=== PATIENT | male | born 1985 | race Caucasian/White ===

== ENCOUNTER 2016-12-13 19:05 | Emergency (ER) | payer SELFPAY ==
--- NOTE | ~2016-12-13 | ER ---
PATIENT'S NAME: RIKKI SANFORD [facility] AGE: 30 Y [address] ROOM: [place] [address] LOCATION: [facility] ADMIT DATE: 12/13/2016 ER/Outpatient Report DISCHARGE DATE: 12/13/2016 FAMILY PHYSICIAN: PHYSICIAN, NO ATTENDING PHYSICIAN: Raul Salas Time of Patient's Arrival: 1905 hours. Time of Patient's Evaluation: 1920 hours. CHIEF COMPLAINT: Schizophrenia. HISTORY OF PRESENT ILLNESS: This is a 30-year-old male who presents to the ER, who states he is needing his medications for his schizophrenia. He states he has not taken it for over a week. He states he does not feel suicidal, he does not feel homicidal. He states that he does have history of high thyroid problems as well, but he has not taken those medications for several months. He does not have a primary care physician. He did present over to [facility] and they told him to come to the emergency room. The patient denies any recent illnesses. No fever or chills. Mother states that she feels a little bit hopeless with him when he stops taking his medications. The patient denies other problems at this time. ALLERGIES: NO KNOWN ALLERGIES. MEDICATIONS: Please see medication list in nurse's notes. PAST MEDICAL HISTORY: Schizophrenia and hypothyroidism. PAST SURGERIES: None. SOCIAL HISTORY: He smokes 1 pack a day for the last 14 years, he does smoke marijuana. REVIEW OF SYSTEMS: All systems were reviewed and were negative with the exception of those discussed in the HPI. PHYSICAL EXAMINATION: VITAL SIGNS: Height 6 feet stated, weight 83.6 kg taken, blood pressure is PATIENT'S NAME: RIKKI SANFORD [facility] AGE: 30 Y [address] ROOM: [place] [address] LOCATION: ED ADMIT DATE: 12/13/2016 ER/Outpatient Report DISCHARGE DATE: 12/13/2016 FAMILY PHYSICIAN: PHYSICIAN, NO ATTENDING PHYSICIAN: Raul Salas 139/77, pulse 102, respirations 18, temperature 99.5 degrees tympanically, and saturations 94% on room air. Yarelis Coma Score is 15. GENERAL: Alert, very anxious-appearing 30-year-old in mild distress. He looks very unkempt and seems a slight bit agitated. HEENT: Head: Normocephalic. Eyes: Pupils are equal and reactive to light. LUNGS: Clear to auscultation bilaterally. No wheezes or crackles. HEART: Regular rate and rhythm. EXTREMITIES: No clubbing or cyanosis. He has full range of motion of all limbs. SKIN: Warm, dry, and intact. LABORATORY DATA: CBC: White count is 9.8, hemoglobin is 14.4, platelets are 285, and ANC is 6.3. CMS: Sodium is 143, potassium is 3.2, anion gap is 9.2, alcohol level is less than 0.010, acetaminophen is less than 2.0, salicylate is 4.4, TSH is 15.40. Urinalysis: Negative for any infection. Urine drug screen was positive for marijuana. IMPRESSION: 1. Schizophrenia. 2. Hypothyroidism. ASSESSMENT AND PLAN: We did have [facility] come over and evaluate the patient. They state that he needs to start back up on his medications and to be seen in about a week's time. I did provide him with prescriptions for Risperdal and levothyroxine to use as directed. We did give him a dose of that here in the emergency room prior to his dismissal. They need to monitor symptoms and follow up with the recommendations of [facility]. The patient and the patient's mother understand and agree with care. DENY ACEVEDO PA-C FOR MD DINA CERNA/trish /[id number] d: t: 12/24/16 1326, OUTPATIENT REPORT
[2016-12-13 19:28] LABS: BILIRUBIN URINE NEGATIVE (NEGATIVE); BLOOD URINE NEGATIVE /UL (NEGATIVE); COLOR URINE YELLOW (YELLOW); GLUCOSE URINE NEGATIVE (NEGATIVE); KETONE URINE 5 mg/dL (NEGATIVE); LEUKOCYTES URINE 25 /UL (NEGATIVE); NITRITE URINE NEGATIVE (NEGATIVE); PH URINE 6.5 (4.0-8.0); PROTEIN URINE 15 mg/dL (NEGATIVE); TURBIDITY URINE CLEAR (CLEAR); UROBILINOGEN URINE 4 mg/dL (NORMAL)
[2016-12-13 19:35] LABS: RBC URINE NEGATIVE #/HPF (NEGATIVE)
[2016-12-13 19:36] LABS: EPITHELIAL URINE 0-2 #/HPF (NEGATIVE)
[2016-12-13 19:37] LABS: BACTERIA URINE NEGATIVE (NEGATIVE); MUCUS URINE 2+ (NEGATIVE)
[2016-12-13 19:38] LABS: BASOPHIL # 0.1 K/uL (0.0-0.2); BASOPHIL % 0.6 %; EOSINOPHIL # 0.1 K/uL (0.0-0.5); EOSINOPHIL % 1.1 %; HEMATOCRIT 40.5 % (37.0-53.0); HEMOGLOBIN 14.4 g/dL (12.0-17.0); IMMATURE GRANULOCYTE % 0.2 %; LYMPHOCYTE # 2.1 K/uL (0.8-4.0); MCH 30.5 pg (27.0-34.0); MCHC 35.6 gm/dL (32.0-36.5); MCV 85.8 fl (83.0-98.0); MONOCYTE # 1.3 K/uL (0.0-1.0); MONOCYTE % 12.8 %; MPV 9.8 fl (9.4-12.4); NEUTROPHIL # (ANC) 6.3 K/uL (1.4-9.0); NEUTROPHIL % 64.3 %; NRBC % 0 /100WBC (0-0.00); PLATELET COUNT 285 K/uL (150-450); RBC 4.72 M/uL (4.00-6.00); RDW-CV 12.8 % (11.9-14.6); WBC 9.8 K/uL (4.0-11.0)
[2016-12-13 19:46] LABS: AMPHETAMINE NEGATIVE (NEGATIVE); COCAINE NEGATIVE (NEGATIVE); OPIATES NEGATIVE (NEGATIVE)
[2016-12-13 19:47] LABS: BARBITURATE NEGATIVE (NEGATIVE)
[2016-12-13 20:00] LABS: ALBUMIN 3.5 gm/dL (3.5-5.0); ALK PHOS 129 IU/L (33-138); ALT 39 IU/L (12-78); ANION GAP 9.2 (10.0-19.0); AST 35 IU/L (10-40); BLOOD UREA NITROGEN 9 mg/dL (6-24); CALCIUM 8.3 mg/dL (8.5-10.5); CHLORIDE 112 mMol/L (96-110); CO2 25 mMol/L (22-32); POTASSIUM 3.2 mMol/L (3.7-5.1); SODIUM 143 mMol/L (135-145); TOTAL BILIRUBIN 0.6 mg/dL (0.0-1.5); TOTAL PROTEIN 6.8 g/dL (6.0-8.4)
[2016-12-23] MEDS ORDERED: RISPERDAL2 MG PO (17:12)
[2016-12-23] MEDS ORDERED: LEVOTHROID (SY50 MCG SL (17:12)
[2017-01-01] MEDS ORDERED: [UNRECOGNIZED DRUG - OTHER] PO (10:48)
[2017-01-01] MEDS ORDERED: NICODERM TOP (10:53)
[2017-01-01] MEDS ORDERED: ZYPREXA15 MG PO (10:56)
[2017-01-01] MEDS ORDERED: INVEGA SUS156 MG/1 M IM (10:59)
== END 2016-12-13 21:06 | disposition disaster alternative care site (69) ==
LOC: GMED 19:05
PROVIDERS: Physician Assistant Medical
DX: F20.9 Schizophrenia, unspecified (principal); E03.9 Hypothyroidism, unspecified; F17.210 Nicotine dependence, cigarettes, uncomplicated; Z79.899 Other long term (current) drug therapy
CPT/HCPCS: G0480